=== PATIENT | male | born 1985 | race Caucasian/White ===

== ENCOUNTER 2016-08-07 18:04 | Inpatient (IN) | payer OTHER ==
[2016-08-07 18:37] LABS: Urine Bacteria Absent (Absent); Urine Bilirubin Negative (Negative); Urine Glucose Negative (Negative); Urine Nitrite Negative (Negative)
[2016-08-07 19:03] LABS: Benzodiazepine Urine Screen None Detected (None Detect)
[2016-08-07 19:11] LABS: Hematocrit 47 % (42-52); Hemoglobin 15.7 g/dl (14.0-18.0); Mean Corpuscular HGB Conc 33 g/dl (31-36); Mean Corpuscular Hemoglobin 31 pg (27-31); Mean Corpuscular Volume 92 fL (80-94); Mean Platelet Volume 9 um3 (7.4-10.4); Red Blood Count 5.11 10^6/ul (4.0-5.4); Red Cell Distribution Width 13 % (10.5-15); White Blood Count 8.1 10^3/ul (3.5-10.8)
[2016-08-07 19:26] LABS: ALT 136 U/L (7-52); AST 351 U/L (13-39); Alkaline Phosphatase 63 U/L (34-104); Anion Gap 4 mmol/L (2-11); BUN/Creatinine Ratio 20.6 (8-20); Blood Urea Nitrogen 22 mg/dL (6-24); CO2 Carbon Dioxide 34 mmol/L (22-32); Calcium 9.6 mg/dL (8.6-10.3); Chloride 100 mmol/L (101-111); EGFR African American 105.1 (>60); EGFR Non-African American 81.7 (>60); Globulin 2.8 g/dL (2-4); Glucose 64 mg/dL (70-100); Potassium 3.7 mmol/L (3.5-5.0); Sodium 138 mmol/L (133-145); Total Protein 6.8 g/dL (6.4-8.9)
[2016-08-07 19:50] LABS: Acetaminophen < 15 mcg/mL; Alcohol < 10 mg/dL (<10); Salicylate < 2.50 mg/dL (<30)
[2016-08-07 22:25] LABS: Albumin 3.6 g/dL (3.2-5.2); BUN/Creatinine Ratio 22.3 (8-20); Calcium 8.9 mg/dL (8.6-10.3); EGFR African American 109.8 (>60); EGFR Non-African American 85.4 (>60); Globulin 2.4 g/dL (2-4); Potassium 3.6 mmol/L (3.5-5.0); Total Bilirubin 0.3 mg/dL (0.2-1.0)
[2016-08-07 22:28] LABS: Acetaminophen < 15 mcg/mL; Salicylate < 2.50 mg/dL (<30)
[2016-08-08] MEDS ORDERED: hydrOXYzine HCL TAB* 50 MG PO PRN (12:22)
--- NOTE | 2016-08-08 13:00 | ED ---
IEber Adam, scribed for Talib Breen MD on 08/08/16 at 1243 . Progress - Progress Note Progress Note: 12:40 - Signed voluntary paperwork Condition: Stable - Consult/PCP Time Called: 10:10 Course/Dx - Diagnoses Provider Diagnoses: Depression, Overdose The documentation as recorded by the scribeEber Adam accurately reflects the service I personally performed and the decisions made by me, Talib Breen MD.
--- NOTE | 2016-08-08 19:24 | CONSULT ---
Subjective Date of Service: 08/08/16 Interval History: CAT call for possible stroke. On arrival patient was sitting on the couch calmly with nurse, stood up and was able to ambulate to the table with no issues. Patient states he is here for suicide attempt by medication overdose and since then has noticed some abnormal sensations on the left side of his body include some numbness, burning sensation and hip pain. Denies any swallowing difficulties, slurred speech, vision changes. Family History: Unchanged from Admission - None Social History: Unchanged from Admission - No tobacco abuse, occasional marijuana use and rare EtOH use. Past Medical History: Unchanged from Admission - Anxiety, depression, Crohn's disease Objective Active Medications: Bupropion HCl (Wellbutrin Sr Tab*) 150 mg PO DAILY [facility] Hydroxyzine HCl (Atarax Tab*) 50 mg PO Q6H PRN PRN Reason: AGITATION/ANXIETY/INSOMNIA Vinton Carbonate (Vinton Carbonate Tab*) 600 mg PO BEDTIME [facility] Propranolol HCl (Inderal Tab*) 10 mg PO DAILY [facility] Quetiapine Fumarate (Seroquel Xr Tab*) 150 mg PO BEDTIME [facility] BP 116/70 RR 16 HR 96 T99.2F O2 Sat 100% on RA Oxygen Devices in Use Now: None Appearance: Young, M, sitting in chair in NAD Eyes: No Scleral Icterus Ears/Nose/Mouth/Throat: Mucous Membranes Moist Neck: NL Appearance and Movements; NL JVP Respiratory: Symmetrical Chest Expansion and Respiratory Effort, Clear to Auscultation Cardiovascular: NL Sounds; No Murmurs; No JVD, RRR Abdominal: NL Sounds; No Tenderness; No Distention Lymphatic: No Cervical Adenopathy Extremities: No Edema Skin: No Rash or Ulcers Neurological: Alert and Oriented x 3, - - Reports some questionable decreased sensation on L side of face (V2-V3), remainder of firefighter type one intact, strength 5/5 throughout B/L UEs and LEs, questionable mild diminished sensation in LUE compared to RUE, no changes in LEs, no pronator drift, [id number] intact, no gait abnormalities noted Result Diagrams: 08/07/16 18:55 08/09/16 08:52 Assessment/Plan - Billing Intermittent L sided burning pain, possible decreased sensation and hip pain in a 31 yo M with hx of depression and anxiety who is hospitalized for attempted overdose after taking Nortriptyline, Seroquel, Propranolol. Symptoms he is reporting do not seem expected with medications he took. Patient seems unsure of any sensory abnormalities, neuro exam is not very convincing for stroke. Apparently patient "blacked out" after taking medications, could have possible fell and struck his head. Will check non-contrast head CT. If he has any change in symptoms can consider additional work-up (MRI, etc). Will check a CK. Recheck electrolytes (K, Mg, Phos, Ca) to ensure no new abnormalities. Will follow-up with patient tomorrow
--- NOTE | 2016-08-08 19:52 | RAD ---
INDICATION: Left-sided weakness COMPARISON: None TECHNIQUE: Noncontrast axial source images were acquired from the skull base to the vertex. FINDINGS: Ventricles/sulci: The ventricles and cisterns are normal in size and configuration for age. Brain parenchyma: There is no focal parenchymal finding, evidence of intracranial mass, or intracranial mass effect. Intracranial hemorrhage:None. Extra-axial spaces: There are no abnormal extra axial fluid collections or evidence of extra-axial mass. Calvarium: There is no calvarial fracture or other calvarial abnormality. Scalp: There is no evidence of scalp or extracalvarial soft tissue abnormality. Paranasal sinuses/mastoid: The paranasal sinuses and mastoid air cells are clear. Other: None. IMPRESSION: NEGATIVE EXAMINATION
[2016-08-08 20:52] LABS: Calcium 9.4 mg/dL (8.6-10.3); EGFR African American 113.6 (>60); EGFR Non-African American 88.3 (>60); Magnesium 2.2 mg/dL (1.9-2.7); Phosphorus 3.5 mg/dL (2.5-5.0); Potassium 4.1 mmol/L (3.5-5.0)
[2016-08-08] MEDS ORDERED: QUEtiapine XR TAB* 50 MG PO SCH (21:00)
[2016-08-08] MEDS ORDERED: Lithium Carbonate TAB* 300 MG PO SCH (21:00)
[2016-08-09 08:28] VITALS: BP 101/59
[2016-08-09] MEDS: Propranolol TAB* 10 MG PO SCH ×2 (08:28→09:35)
[2016-08-09] MEDS: buPROPion SR TAB.SR* 150 MG PO SCH ×2 (08:28→09:35)
[2016-08-09 09:15] LABS: BUN/Creatinine Ratio 16.8 (8-20); Calcium 9.5 mg/dL (8.6-10.3); EGFR African American 105.1 (>60); EGFR Non-African American 81.7 (>60); Potassium 4.1 mmol/L (3.5-5.0)
--- NOTE | 2016-08-23 20:49 | ED ---
Maryanne Lawler Anna, scribed for Marshal Sanz MD on 08/07/16 at 1832 . Psychiatric Complaint - HPI Summary HPI Summary: Patient is a 31 y/o male coming to [facility] presenting with depression that began a while ago. He tried to kill himself two days ago by ingesting 33 pills. He reports taking 18 pills of Nortriptyline, 5 pills of cyclobenzaprine, 10 pills of Xeroquel. He denies hearing voices, hallucinations, schizophrenia, bipolar disorder, or previous hospitalization for psychiatric reasons. He does want to hurt himself. He reports he has not tried to kill himself previously. He feels lifeless and hopeless. He has been sleeping a lot and has been drinking lots of water. - History Of Current Complaint Time Seen by Provider: 08/07/16 18:11 Hx Obtained From: Patient PMH/Surg Hx/FS Hx/Imm Hx Previously Healthy: Yes Psychiatric History: Denies: Hx Schizophrenia, Hx Bipolar Disorder, Other Psychiatric Issues/ Disorders Infectious Disease History: Denies: Traveled Outside the [place] in Last 30 Days - Family History Known Family History: Negative: Cardiac Disease, Diabetes - Social History Occupation: Student Alcohol Use: Occasionally Hx Substance Use: No Substance Use Type: Reports: None Hx Tobacco Use: No Smoking Status (MU): Never Smoked Tobacco Review of Systems Negative: Abdominal Pain, Vomiting, Nausea Negative: dysuria, hematuria Negative: Myalgia, Edema Negative: Rash Neurological: Other - Denies dizziness Psychological: Other - Suicide attempt Positive: Depressed All Other Systems Reviewed And Are Negative: Yes Physical Exam - Summary Physical Exam Summary: Constitutional: Well-developed, Well-nourished, Alert. (-) Distressed Skin: Warm, Dry HENT: Eyes: Conjunctiva normal Neck: Musculoskeletal ROM normal neck. (-) JVD, (-) Stridor, (-) Tracheal deviation Cardio: Rhythm regular, ~~rate normal, Heart sounds normal; Intact distal pulses ; The pedal pulses are 2+ and symmetric. Radial pulses are 2+ and symmetric. (- ) Murmur Pulmonary/Chest wall: Effort normal. (-) Respiratory distress, (-) Wheezes, (-) Rales Abd: Soft. (-) Tenderness, ~(-) Distension, (-) Guarding, (-) Rebound Musculoskeletal: (-) Edema Lymph: (-) Cervical adenopathy Neuro: Alert, Oriented x3, Strength normal, Cranial nerves II-XII are grossly intact. (-) Dysmetria, (-) Nystagmus, (-) Ataxia by finger to nose testing, (-) Sensory deficit. Psych: Flat affect Triage Information Reviewed: Yes Vital Signs On Initial Exam: Initial Vitals Temp Pulse Resp BP Pulse Ox 36.8 C 82 18 115/72 99 08/07/16 19:25 08/07/16 19:25 08/07/16 19:25 08/07/16 19:25 08/07/16 19:25 Vital Signs Reviewed: Yes Diagnostics - Vital Signs Vital Signs Temp Pulse Resp BP Pulse Ox 08/08/16 07:23 36.7 C 74 16 91/52 99 08/07/16 19:25 36.8 C 82 18 115/72 99 - Laboratory Lab Results: Lab Results 08/07/16 08/07/16 08/07/16 Range/Units 18:25 18:25 18:55 WBC 8.1 (3.5-10.8) 10^3/ul RBC 5.11 (4.0-5.4) 10^6/ul Hgb 15.7 (14.0-18.0) g/dl Hct 47 (42-52) % MCV 92 (80-94) fL MCH 31 (27-31) pg MCHC 33 (31-36) g/dl RDW 13 (10.5-15) % Plt Count 198 (150-450) 10^3/ul MPV 9 (7.4-10.4) um3 Neut % (Auto) 58.6 (38-83) % Lymph % (Auto) 30.4 (25-47) % [place] % (Auto) 9.3 H (1-9) % Eos % (Auto) 0.9 (0-6) % Baso % (Auto) 0.8 (0-2) % Absolute Neuts (auto) 4.8 (1.5-7.7) 10^3/ul Absolute Lymphs (auto) 2.5 (1.0-4.8) 10^3/ul Absolute Monos (auto) 0.8 (0-0.8) 10^3/ul Absolute Eos (auto) 0.1 (0-0.6) 10^3/ul Absolute Basos (auto) 0.1 (0-0.2) 10^3/ul Absolute Nucleated RBC 0 10^3/ul Nucleated RBC % 0.1 Sodium (133-145) mmol/L Potassium (3.5-5.0) mmol/L Chloride (101-111) mmol/L Carbon Dioxide (22-32) mmol/L Anion Gap (2-11) mmol/L BUN (6-24) mg/dL Creatinine (0.67-1.17) mg/dL Est GFR ( Amer) (>60) Est GFR (Non-Af Amer) (>60) BUN/Creatinine Ratio (8-20) Glucose (70-100) mg/dL Calcium (8.6-10.3) mg/dL Total Bilirubin (0.2-1.0) mg/dL AST (13-39) U/L ALT (7-52) U/L Alkaline Phosphatase (34-104) U/L Total Protein (6.4-8.9) g/dL Albumin (3.2-5.2) g/dL Globulin (2-4) g/dL Albumin/Globulin Ratio (1-3) TSH (0.34-5.60) mcIU/mL Urine Color Yellow Urine Appearance Clear Urine pH 5.0 (5-9) Ur Specific [place] 1.025 (1.010-1.030) Urine Protein Negative (Negative) Urine Ketones Negative (Negative) Urine Blood 2+ H (Negative) Urine Nitrate Negative (Negative) Urine Bilirubin Negative (Negative) Urine Urobilinogen Negative (Negative) Ur Leukocyte Esterase Negative (Negative) Urine WBC (Auto) 1+(6-10/hpf) H (Absent) Urine RBC (Auto) Trace(0-2/hpf) (Absent) Urine Bacteria Absent (Absent) Urine Glucose Negative (Negative) Salicylates (<30) mg/dL Urine Opiates Screen None detected (None Detect) Acetaminophen mcg/mL Ur Barbiturates Screen None detected (None Detect) Ur Phencyclidine Scrn None detected (None Detect) Ur Amphetamines Screen Presumptive positive H (None Detect) U Benzodiazepines Scrn None detected (None Detect) Urine Cocaine Screen None detected (None Detect) U Cannabinoids Screen Presumptive positive H (None Detect) Serum Alcohol (<10) mg/dL 08/07/16 08/07/16 08/07/16 Range/Units 18:55 21:45 21:45 WBC (3.5-10.8) 10^3/ul RBC (4.0-5.4) 10^6/ul Hgb (14.0-18.0) g/dl Hct (42-52) % MCV (80-94) fL MCH (27-31) pg MCHC (31-36) g/dl RDW (10.5-15) % Plt Count (150-450) 10^3/ul MPV (7.4-10.4) um3 Neut % (Auto) (38-83) % Lymph % (Auto) (25-47) % [place] % (Auto) (1-9) % Eos % (Auto) (0-6) % Baso % (Auto) (0-2) % Absolute Neuts (auto) (1.5-7.7) 10^3/ul Absolute Lymphs (auto) (1.0-4.8) 10^3/ul Absolute Monos (auto) (0-0.8) 10^3/ul Absolute Eos (auto) (0-0.6) 10^3/ul Absolute Basos (auto) (0-0.2) 10^3/ul Absolute Nucleated RBC 10^3/ul Nucleated RBC % Sodium 138 138 (133-145) mmol/L Potassium 3.7 3.6 (3.5-5.0) mmol/L Chloride 100 L 100 L (101-111) mmol/L Carbon Dioxide 34 H 32 (22-32) mmol/L Anion Gap 4 6 (2-11) mmol/L BUN 22 23 (6-24) mg/dL Creatinine 1.07 1.03 (0.67-1.17) mg/dL Est GFR ( Amer) 105.1 109.8 (>60) Est GFR (Non-Af Amer) 81.7 85.4 (>60) BUN/Creatinine Ratio 20.6 H 22.3 H (8-20) Glucose 64 L 105 H (70-100) mg/dL Calcium 9.6 8.9 (8.6-10.3) mg/dL Total Bilirubin 0.30 0.30 (0.2-1.0) mg/dL AST 351 H 295 H (13-39) U/L ALT 136 H 120 H (7-52) U/L Alkaline Phosphatase 63 59 (34-104) U/L Total Protein 6.8 6.0 L (6.4-8.9) g/dL Albumin 4.0 3.6 (3.2-5.2) g/dL Globulin 2.8 2.4 (2-4) g/dL Albumin/Globulin Ratio 1.4 1.5 (1-3) TSH 3.60 (0.34-5.60) mcIU/mL Urine Color Urine Appearance Urine pH (5-9) Ur Specific [place] (1.010-1.030) Urine Protein (Negative) Urine Ketones (Negative) Urine Blood (Negative) Urine Nitrate (Negative) Urine Bilirubin (Negative) Urine Urobilinogen (Negative) Ur Leukocyte Esterase (Negative) Urine WBC (Auto) (Absent) Urine RBC (Auto) (Absent) Urine Bacteria (Absent) Urine Glucose (Negative) Salicylates < 2.50 < 2.50 (<30) mg/dL Urine Opiates Screen (None Detect) Acetaminophen < 15 < 15 mcg/mL Ur Barbiturates Screen (None Detect) Ur Phencyclidine Scrn (None Detect) Ur Amphetamines Screen (None Detect) U Benzodiazepines Scrn (None Detect) Urine Cocaine Screen (None Detect) U Cannabinoids Screen (None Detect) Serum Alcohol < 10 (<10) mg/dL Result Diagrams: 08/07/16 18:55 08/09/16 08:52 Lab Statement: Any lab studies that have been ordered have been reviewed, and results considered in the medical decision making process. Course/Dx - Course Course Of Treatment: Pt is medically cleared for MHU Evaluation at 2233. Assessment/Plan: Patient is a 31 y/o male coming to [facility] presenting with depression that began a while ago. He tried to kill himself two days ago by ingesting 33 pills. He reports taking 18 pills of Nortriptyline, 5 pills of cyclobenzaprine, 10 pills of Xeroquel. He denies hearing voices, hallucinations , schizophrenia, bipolar disorder, or previous hospitalization for psychiatric reasons. He does want to hurt himself. He reports he has not tried to kill himself previously. He feels lifeless and hopeless. He has been sleeping a lot and has been drinking lots of water. Labs reveal presumptive positive values for amphetamines and cannabinoids. UA is positive for blood in urine. AST is elevated, at 351 U/L. ALT is elevated, at 136 U/L. Upon repeat labs, AST is 295 and ALT is 120. Pt is medically cleared for MHU Evaluation at 2233. - Differential Dx/Clinical Impression Provider Diagnosis: Depression, Overdose Discharge - Discharge Plan Condition: Stable Disposition: ADMITTED TO [facility] The documentation as recorded by the Maryanne greene Anna accurately reflects the service I personally performed and the decisions made by me, Marshal Sanz MD.
== END 2016-08-09 09:43 | disposition short-term general hospital (02) | DRG 885 ==
LOC: ED 18:04 → BSU 08-08 16:29
PROVIDERS: ADMIT Psychiatry & Neurology Psychiatry; ATTEND Psychiatry & Neurology Psychiatry
DX: F33.2 Major depressive disorder, recurrent severe without psychotic features (principal); K50.90 Crohn's disease, unspecified, without complications; F41.9 Anxiety disorder, unspecified; F90.9 Attention-deficit hyperactivity disorder, unspecified type; R20.0 Anesthesia of skin
CPT/HCPCS: 36415; 70450; 80048; 80053; 80307; 80320; 80329; 81003; 81015; 82550; 83735; 84100; 84443; 85025; 93005; A9270-GY; G0480

== ENCOUNTER 2016-08-09 09:43 | Inpatient (IN) | payer OTHER ==
[2016-08-09] MEDS: NS 0.9% 1000 ML* 1,000 ML IV SCH ×2 (12:20→20:15)
[2016-08-09 12:51] LABS: BUN/Creatinine Ratio 20.6 (8-20); Calcium 9.5 mg/dL (8.6-10.3); EGFR African American 117.7 (>60); EGFR Non-African American 91.5 (>60); Globulin 2.8 g/dL (2-4); Potassium 3.8 mmol/L (3.5-5.0); Total Bilirubin 0.4 mg/dL (0.2-1.0); Total Protein 6.8 g/dL (6.4-8.9)
--- NOTE | 2016-08-09 16:53 | PN ---
Progress Note - Progress Note Note: Wilmer was admitted to the [facility] yesterday after a near lethal suicide attempt. He was evaluated by the CAT last night to r/o TIA or stroke after complaining of non specific weakness, numbness. The evaluation was negative but he was incidentally found to have elevated CPK and he was transferred to the hospitalist service this AM before psychiatric evaluation. Plan to is see him in consultation in the hospitalist service and readmit him him to [facility] when medically cleared.
--- NOTE | 2016-08-09 19:23 | HP ---
HISTORY AND PHYSICAL: DATE OF ADMISSION: 08/09/16 PRIMARY CARE PHYSICIAN: Through [facility]. CHIEF COMPLAINT: Left-sided pain and numbness. HISTORY OF PRESENT ILLNESS: Mr. Valdez is a 31-year-old man with a past medical history of depressio n, anxiety, and Crohn disease who initially presented to the hospital with an intentional drug overd ose. 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 In an attempt to kill himself, he states that he took propranol ol, Seroquel followed by Benadryl, and then nortriptyline after researching the effects of the medic ations and feeling that that would be an appropriate cocktail to result in his . The patient s tates he laid on the ground for 30 to 40 minutes before becoming unconscious. This was on late on 08/05/16. The patient states that when he next awoke, it was daylight the next morning on Thursday. He states that he had left-sided hip and leg pain. He attempted to get up in a chair. He states that it took him hours. He then fell back asleep for the rest of the day and into the nig ht and thinks that he woke up either late Thursday or early . On , he called his c ounselor and told him about what he done done. The counselor told him he should go to the hospital, which the patient had stated he would do. Later in the day, the counselor did not receive callback from the patient, so he called the patient again and when there was no answer, he called the police who found the patient still in his apartment and was brought to the hospital for further evaluation . On his initial labs, they were relatively unremarkable aside from some increased AST and ALT. He was mildly hypoglycemic at 64. His UA showed 2+ blood and trace rbc's. His U-tox was positive for amphetamines and cannabinoids. The patient was admitted to the psych unit on August 08. Around 0645 hours, a catcall was made, which I personally responded to. This was made because the patient reported persistent left-sided pain and some numbness in the arm and leg. I examined the patient and could not find any significant neurological defects. As part of the panel of labs and imaging, I ordered a CK, which was elevated at 10,319. I suspect this is the cause of his symptoms and also his AST and ALT elevations may hav e been indicative of some underlying muscle injury as well. As the patient cannot IV fluids on the Behavioral Health Unit, he was transferred to the medical floor for further treatment. PAST MEDICAL HISTORY: 1. Depression. 2. Anxiety. 3. Crohn disease. PAST SURGICAL HISTORY: None. ALLERGIES: The patient has no known drug allergies. FAMILY HISTORY: He states that he has none. 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 Denies any tobacco ab use. Reports occasional use and occasional marijuana use. REVIEW OF SYSTEMS: A 12-point review of systems is negative except for that as noted in the HPI. PHYSICAL EXAMINATION GENERAL: The patient is a pleasant, young man, sitting up in bed, in no apparent distress . VITAL SIGNS: This morning temperature 98.1, heart rate of 74, respiratory rate of 16, O2 saturation 99% on room air, and blood pressure 91/52. HEENT: Moist mucous membranes. Anicteric sclerae. No cervical adenopathy. LUNGS: Clear to auscultation bilaterally. No wheezes, rales, or rhonchi. CARDIOVASCULAR: Regular rate and rhythm. S1, S2 present. No murmurs, rubs, or gallops. ABDOMEN: Soft, nontender, and nondistended. Bowel sounds positive. EXTREMITIES: No cyanosis, clubbing, or edema. The patient reports some tenderness along the latera l left calf as well as some questionable decreased sensation. NEUROLOGIC: The remainder of his neurological exam is within normal limits. DIAGNOSTIC STUDIES/LAB DATA: CK of 10,319, now improved to 6591. Sodium of 138, potassium 3.8, cr eatinine of 0.97, and glucose of 51, recheck of 73. AST of [address] ALT of [address]. CT of the head shows no acute disease. ASSESSMENT AND PLAN: Rhabdomyolysis secondary to prolonged immobilization due to intentional drug o verdose in a 31-year-old man with a past medical history of depression, anxiety, and Crohn disease. 1. Rhabdomyolysis: The patient is having no renal dysfunction. Rhabdomyolysis seemed to be improv ing on its own; however, I would prefer to give the patient IV fluids overnight to try to avoid any renal injury. Continue normal saline at 125 mL per hour. This is likely the cause of his left-side d symptoms. 2. Depression and anxiety: Continue bupropion, lithium, propranolol, and Seroquel that were all be ing given in the psych unit. 3. Crohn disease: We will try to determine the patient's home dose of Asacol and restart that. 4. DVT prophylaxis: The patient is low risk, ambulate. 5. Code status: The patient is a full code. 6. The patient will likely need just 1 to 2 nights of IV fluids and should be ready to transfer [facility] to the psych unit when this is complete. TIME SPENT: Total time spent on this patient, 55 minutes. [id number]/[facility] #: [id number]
[2016-08-09] MEDS: Lithium Carbonate TAB* 300 MG PO SCH (22:46)
[2016-08-09] MEDS: QUEtiapine XR TAB* 50 MG PO SCH (23:56)
[2016-08-10] MEDS: NS 0.9% 1000 ML* 1,000 ML IV SCH ×3 (03:47→21:10)
[2016-08-10 07:13] LABS: Calcium 8.8 mg/dL (8.6-10.3); EGFR African American 158.3 (>60); EGFR Non-African American 123.1 (>60)
[2016-08-10] MEDS ORDERED: Propranolol TAB* 10 MG PO SCH (09:00)
[2016-08-10] MEDS ORDERED: BuPROPion XL* 150 MG TAB.XL PO SCH (09:00)
[2016-08-10] MEDS ORDERED: Influenza VAC *QUAD* 2016-17* 0.5 ML SYRINGE IM ONE (09:00)
--- NOTE | 2016-08-10 09:29 | PN ---
Subjective Date of Service: 08/10/16 Interval History: Patient seen this morning. Says he feels well rested. Thinks L sided symptoms are improving although still notes more localized areas on the L lateral calf and L cheekbone. Has been ambulating around the unit. Urine is clear. No suicidal ideations. Family History: Unchanged from Admission Social History: Unchanged from Admission Past Medical History: Unchanged from Admission Objective Active Medications: Bupropion HCl (Wellbutrin Xl *) 300 mg PO DAILY [facility] Sodium Chloride (Ns 0.9% 1000 Ml*) 1,000 mls @ 125 mls/hr IV PER RATE [facility] Last Admin: 08/10/16 03:47 Dose: 125 mls/hr Cidra Carbonate (Cidra Carbonate Tab*) 600 mg PO BEDTIME [facility] Last Admin: 08/09/16 22:46 Dose: 600 mg Propranolol HCl (Inderal Tab*) 10 mg PO DAILY [facility] Quetiapine Fumarate (Seroquel Xr Tab*) 150 mg PO BEDTIME [facility] Last Admin: 08/09/16 23:56 Dose: 150 mg Vital Signs 08/09/16 08/09/16 08/09/16 10:34 13:01 14:13 Temperature 98.3 F 98.4 F Pulse Rate 103 105 Respiratory 14 18 17 Rate Blood Pressure 108/70 118/72 (mmHg) O2 Sat by Pulse 100 100 Oximetry 08/09/16 08/09/16 08/09/16 14:15 15:09 19:27 Temperature 98.4 F 97.9 F 98.9 F Pulse Rate 105 100 105 Respiratory 17 16 16 Rate Blood Pressure 118/72 113/74 111/91 (mmHg) O2 Sat by Pulse 100 100 100 Oximetry 08/10/16 07:54 Temperature 97.4 F Pulse Rate 83 Respiratory 16 Rate Blood Pressure 104/56 (mmHg) O2 Sat by Pulse 100 Oximetry Oxygen Devices in Use Now: None Appearance: Young, M, laying in bed in NAD Eyes: No Scleral Icterus Ears/Nose/Mouth/Throat: Mucous Membranes Moist Neck: NL Appearance and Movements; NL JVP Respiratory: Symmetrical Chest Expansion and Respiratory Effort, Clear to Auscultation Cardiovascular: NL Sounds; No Murmurs; No JVD, RRR Abdominal: NL Sounds; No Tenderness; No Distention Lymphatic: No Cervical Adenopathy Extremities: No Edema Skin: - - Some slight drying ok skin over L cheeckbone Neurological: Alert and Oriented x 3, - - Reports slightly diminished sensation over L cheekbone and L lateral calf Result Diagrams: 08/10/16 06:21 Assess/Plan/Problems-Billing Assessment: Rhabdomyolysis 2/2 prolonged immobilization after overdose/suicide attempt ( Propranolol, Seroquel, Benadryl, Nortriptyline) in a 31 yo M with hx of anxiety , depression, crohns - Patient Problems (1) Rhabdomyolysis Current Visit: Yes Comment: CKs improving. Continue IVF another 24 hours. No signs of renal dysfunction. (2) Depression Current Visit: Yes Comment: Continue bupropion, lithium, propranolol and seroquel as per psych. Spoke with Dr. Fisher who says he will continue to follow the patient on the floor (3) Crohn's disease Current Visit: Yes Comment: Unable to determine home dose of mesalamine. No signs of exacerbation at this time. Will continue to try to find dose. (4) DVT prophylaxis Current Visit: Yes Comment: Ambulate
[2016-08-10] MEDS: BuPROPion XL* 300 MG TAB.XL PO SCH (09:36)
[2016-08-10] MEDS: Venlafaxine EXT RELEASE CAP* 75 MG PO SCH (16:17)
[2016-08-10] MEDS: Lithium Carbonate TAB* 300 MG PO SCH (21:00)
[2016-08-10] MEDS: QUEtiapine XR TAB* 50 MG PO SCH (21:00)
--- NOTE | 2016-08-10 21:26 | CONS ---
PSYCHIATRIC CONSULTATION/HISTORY AND PHYSICAL: DATE OF CONSULT/ADMISSION: 08/10/16 ID: Mr. 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 CHIEF COMPLAINT He was medically treated in the ED and he was admitted initially to the psychiatric service on 08/08/16 for treatment. In the evening of the same day, he complained of weakness on one side, tingling sensation and numbness on half of his face. He was assessed by the clinical assessment team and CVA was conclusively ruled out, but he was incidentally found to have high CPK levels (over 10,000) and he was transferred to the hospitalist service on for treatment. I saw him today, 08/10/16, to reassess the need for inpatient psychiatric admission after he is medically cleared. HISTORY OF PRESENT ILLNESS: The patient relates that he has long-standing history of depression, anxiety, and attention/deficit disorder and he receives outpatient care at [facility] at [place]. He relates that his current difficulties started on August 05, when he was called into a meeting with a professor, was accused of plagiarism and he was also informed that he was doing poorly as a student and was going to be placed on academic probation. He said he felt quite distressed and upset about the meeting. He had another meeting with another amphibian crewmember which went better. Then, he went to his apartment where he took the time to gather family pictures and he also wrote on his body the reason why he was about to take his life. He then swallowed 4 pills of beta blockers (a mix of propranolol and atenolol), 12 to 15 pills of nortriptyline 100 mg, 3 tablets of Benadryl 25 mg and 7 to 12 tablets of Seroquel 150 mg XR. He explains that had done some research and he knew that the overdose on nortriptyline would probably be lethal and the rationale for taking the other medications was to be sedated and to not to experience any pain while ending his life. He fell asleep within half an hour of taking the pills, woke up on the floor the next morning, felt weak, and dragged himself to bed, and again slept for another 12 hours. On , he called [facility] and asked to speak to his therapist, Carlos Greenberg, who advised him to either drive himself to the emergency room or to call 911 and be transported by ambulance. He again fell asleep and he missed an emergency appointment with [facility]. The therapist called to check in on him and he did not answer, as a result, the police responded to the house and called an ambulance to have him transported here. The patient described additional stressors of feeling lonely. He reports considering taking a medical leave. REVIEW OF MEDICAL SYMPTOMS: The patient described since age 12, 13, recurrent depressive episodes with low mood, decreased interest, low level of energy, lack of motivation, impaired attention and concentration, passive wish, self-cutting behavior to relieve stress, isolating from others, feelings of guilt, hopelessness, helplessness, and worthlessness. He asserted the he is persistently depressed with brief period lasting a few days when he feels better. He denies manic or psychotic symptoms. He endorses anxiety in social settings or in situations of performance. He also described recurrent panic attacks, excessive worrying, feeling tense and irritable. He denies obsessive thoughts or compulsive rituals. He denies history of trauma, abuse, or PTSD symptoms. The patient denies previous diagnosis of learning disorder. He endorsed difficulty focusing his attention, getting work done, organizing, and prioritizing tasks, and he was evaluated by a psychologist, who felt that he had questionable ADD. He denies symptoms of eating disorder. PAST PSYCHIATRIC HISTORY: This is his first inpatient psychiatric admission. He started outpatient care while he was attending the school in [place] 2 arita ago because of depression. His current outpatient care currently is at [facility] with Dr. Chema Lanier and with therapist, Carlos Greenberg. He is prescribed Effexor XR 150 mg daily, Adderall 30 mg in the morning, Seroquel XR 150 mg at bedtime, Propranolol 10 mg as needed for performance anxiety. He was being weaned off Wellbutrin XL 300 mg daily and lithium current dose is 600 mg p.o. at bedtime. SUICIDE/HOMICIDE HISTORY: The patient relates that about 2 years ago, he took an overdose of lithium that he knew was not a lethal dose. He described it as more of a suicidal gesture that he did not disclose to anyone and did not seek care for it. He does have a history of self-cutting behavior to relieve stress. He took the pills last Thursday evening with the intent to end his life. He denies any history of violence. MEDICATION HISTORY: The patient has had past trials of desipramine, nortriptyline, Viibrid, alprazolam, clonazepam, and he is also being weaned off bupropion XL and lithium. FAMILY HISTORY: The patient reports family history of depression and anxiety in his biological mother. SUBSTANCE ABUSE HISTORY: The patient reports drinking alcohol socially. He estimates drinking from 0 to 2 times a week, occasionally to the point of intoxication. He smokes marijuana occasionally. He denies smoking tobacco. He denies the use of other illicit drugs. PERSONAL AND SOCIAL HISTORY: He is the younger of two males from parents who when he was about 12 years old. He has a brother who is 1 year older and who still lives in [place]. Following the separation, he spent time alternatively with both parents. He did well in high school and as an undergraduate student in [place] where he majored in music. 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 He started at [employer] last fall and this is his second semester of a 5-year program. He identified as being homosexual. He is not currently dating, but he has been sexually active with other males. He declines HIV testing, citing lack of need. He reported feeling rather socially isolated on campus. REVIEW OF MEDICAL SYMPTOMS: Remarkable for the fact that he is status post overdose of prescribed medications and for Crohn's disease for which he takes mesalamine and hydrocortisone and he is being treated for Rhabdomyolysis. REVIEW OF MEDICAL SYMPTOMS: High CPK that is trending down. PHYSICAL EXAMINATION: Please refer to Dr. Ortiz's history and physical on this patient. MENTAL STATUS EXAMINATION: Finds an averagely built, 31-year-old white male wearing glasses, dressed in hospital gown who looks his stated age. He is well groomed. He makes good eye contact and he is cooperative. He exhibits normal psychomotor activity. No abnormal movements are observed. Speech is spontaneous, normal rate, rhythm, and volume. His affect is constricted. Mood is depressed. He denies active suicidal ideation or urges to self-mutilate and he contracts for safety. His insight and judgment are fair. Impulse control is good in this setting. He is alert. He is oriented to time, place, and person. Attention, memory, and concentration are all fair. Fund of knowledge is adequate. Intelligence is estimated to be in high average range. SUMMARY: First inpatient psychiatric admission for this 31-year-old male with a history of self-injury, suicide attempt, substance abuse, outpatient care, current trial of venlafaxine, quetiapine, Adderall, and propranolol, who was brought in by ambulance from his apartment after an intentional overdose on his prescribed medications with intent to end his life. Context was set back at school where he was accused of plagiarism and was placed on academic probation. Medical history is remarkable for rhabdomyolysis and for Crohn's disease. He described academic stress, feeling socially isolated, and anxiety about disclosing to his parents what has happened as his stressors. DIAGNOSTIC IMPRESSIONS: 1. Major depressive disorder, recurrent, moderate to severe, without psychotic features. 2. Complex anxiety disorder (with features of social, panic, and generalized anxiety). 3. Attention deficit/disorder, by history. 4. Cluster B traits. TREATMENT PLAN: The patient when assessed today still continued to report feeling depressed and he did not contract for safety if discharged from this hospital. The plan is to readmit him to the [facility] when he is medically cleared for observation, evaluation, and treatment. The patient has agreed to start working on psychological testing while in the hospitalist service. I have discussed this plan with hospitalist, Dr. Jose Ortiz, and helped reconciled the patient's previous outpatient regimen. 60 min. of clinical time spent of this evaluation. [id number]/[facility] #: [id number] RADHA
[2016-08-11] MEDS: NS 0.9% 1000 ML* 1,000 ML IV SCH (05:09)
[2016-08-11 07:47] LABS: BUN/Creatinine Ratio 16.5 (8-20); Calcium 8.6 mg/dL (8.6-10.3); EGFR African American 137.1 (>60); EGFR Non-African American 106.6 (>60); Potassium 3.9 mmol/L (3.5-5.0)
[2016-08-11] MEDS: BuPROPion XL* 300 MG TAB.XL PO SCH (09:23)
[2016-08-11] MEDS: Venlafaxine EXT RELEASE CAP* 75 MG PO SCH (09:23)
--- NOTE | 2016-08-11 11:07 | PN ---
Subjective Date of Service: 08/11/16 Interval History: Patient seen this morning. Still reporting some numbness/pain in scattered areas on the left side of his body. Urinating with no issues. No blood in urine. Recalls home dose of mesalamine, will reorder. Family History: Unchanged from Admission Social History: Unchanged from Admission Past Medical History: Unchanged from Admission Objective Active Medications: Bupropion HCl (Bupropion Xl*) 300 mg PO DAILY [facility] Sodium Chloride (Ns 0.9% 1000 Ml*) 1,000 mls @ 125 mls/hr IV PER RATE [facility] [place] Carbonate ([place] Carbonate Tab*) 600 mg PO BEDTIME [facility] Mesalamine (Mesalamine Dr Cap*) 2,400 mg PO BID [facility] Quetiapine Fumarate (Seroquel Xr Tab*) 150 mg PO BEDTIME [facility] Venlafaxine HCl (Effexor Xr Cap*) 150 mg PO DAILY [facility] Vital Signs 08/10/16 08/10/16 08/10/16 17:00 20:54 23:34 Temperature 99.6 F 98.1 F Pulse Rate 96 99 Respiratory 14 18 16 Rate Blood Pressure 111/70 98/60 (mmHg) O2 Sat by Pulse 100 97 Oximetry 08/10/16 23:49 Temperature Pulse Rate Respiratory Rate Blood Pressure 104/60 (mmHg) O2 Sat by Pulse Oximetry Oxygen Devices in Use Now: None Appearance: Young, M, laying in bed in NAD Eyes: No Scleral Icterus Ears/Nose/Mouth/Throat: Mucous Membranes Moist Neck: NL Appearance and Movements; NL JVP Respiratory: Symmetrical Chest Expansion and Respiratory Effort, Clear to Auscultation Cardiovascular: NL Sounds; No Murmurs; No JVD, RRR Abdominal: NL Sounds; No Tenderness; No Distention Lymphatic: No Cervical Adenopathy Extremities: No Edema Skin: No Rash or Ulcers Neurological: Alert and Oriented x 3 Result Diagrams: 08/11/16 06:52 Assess/Plan/Problems-Billing Assessment: Rhabdomyolysis 2/2 prolonged immobilization after overdose/suicide attempt ( Propranolol, Seroquel, Benadryl, Nortriptyline) in a 31 yo M with hx of anxiety , depression, crohns - Patient Problems (1) Rhabdomyolysis Current Visit: Yes Comment: CKs improving, will stop IVF, encouraged oral intake. No need to trend further. (2) Depression Current Visit: Yes Comment: Continue bupropion, lithium, effexor and seroquel as per psych. Awaiting bed opening on [facility]. MMPI completed by patient and placed in the chart. (3) Crohn's disease Current Visit: Yes Comment: Will order mesalamine 2400 BID which patient reports he takes at home. (4) DVT prophylaxis Current Visit: Yes Comment: Ambulate
[2016-08-11] MEDS: Lithium Carbonate TAB* 300 MG PO SCH (20:59)
[2016-08-11] MEDS: QUEtiapine XR TAB* 50 MG PO SCH (21:00)
[2016-08-12] MEDS: Venlafaxine EXT RELEASE CAP* 75 MG PO SCH (09:45)
[2016-08-12] MEDS: BuPROPion XL* 300 MG TAB.XL PO SCH (09:45)
--- NOTE | 2016-08-12 10:33 | PN ---
Subjective Date of Service: 08/12/16 Interval History: Patient seen this morning. No new complaints. Says he is getting restless. Urinating with no issues. Family History: Unchanged from Admission Social History: Unchanged from Admission Past Medical History: Unchanged from Admission Objective Active Medications: Bupropion HCl (Bupropion Xl*) 300 mg PO DAILY [facility] Last Admin: 08/12/16 09:45 Dose: 300 mg [place] Carbonate ([place] Carbonate Tab*) 600 mg PO BEDTIME [facility] Last Admin: 08/11/16 20:59 Dose: 600 mg Mesalamine (Mesalamine Dr Cap*) 2,400 mg PO BID [facility] Last Admin: 08/12/16 09:45 Dose: 2,400 mg Quetiapine Fumarate (Seroquel Xr Tab*) 150 mg PO BEDTIME [facility] Last Admin: 08/11/16 21:00 Dose: 150 mg Venlafaxine HCl (Effexor Xr Cap*) 150 mg PO DAILY [facility] Last Admin: 08/12/16 09:45 Dose: 150 mg Vital Signs 08/11/16 08/11/16 08/11/16 11:49 15:24 20:00 Temperature 98.0 F 98.1 F Pulse Rate 85 93 Respiratory 16 14 16 Rate Blood Pressure 113/60 116/77 (mmHg) O2 Sat by Pulse 100 100 Oximetry Oxygen Devices in Use Now: None Appearance: Young, M, laying in bed in NAD Eyes: No Scleral Icterus Ears/Nose/Mouth/Throat: Mucous Membranes Moist Neck: NL Appearance and Movements; NL JVP Respiratory: Symmetrical Chest Expansion and Respiratory Effort, Clear to Auscultation Cardiovascular: NL Sounds; No Murmurs; No JVD, RRR Abdominal: NL Sounds; No Tenderness; No Distention Extremities: No Edema Neurological: Alert and Oriented x 3 Result Diagrams: 08/11/16 06:52 Assess/Plan/Problems-Billing Assessment: Rhabdomyolysis 2/2 prolonged immobilization after overdose/suicide attempt ( Propranolol, Seroquel, Benadryl, Nortriptyline) in a 31 yo M with hx of anxiety , depression, crohns - Patient Problems (1) Rhabdomyolysis Current Visit: Yes Comment: Stopped trending, off IVF. (2) Depression Current Visit: Yes Comment: Continue bupropion, lithium, effexor and seroquel as per psych. Awaiting bed opening on [facility]. MMPI completed by patient and placed in the chart. (3) Crohn's disease Current Visit: Yes Comment: Mesalamine 2400 BID which patient reports he takes at home. (4) DVT prophylaxis Current Visit: Yes Comment: Ambulate Status and Disposition: Likely transfer back to Psych unit later today
--- NOTE | 2016-08-12 17:03 | CONSULT ---
Identification - Patient Identification Reason for Psychiatric Consultation: Suicidal Ideation -: Patient is a 31 year old, M admitted on 08/10/16. - MHU Identification Employment Status: Student History - Objective HPI: Patient seen for psychiatric consultation follow up. My understanding is that he is medically cleared and now awaiting transfer back to the [facility], where he was briefly hospitalized over the weekend before developing somatic symptoms requiring transfer to medicine. Currently he presents as depressed and constricted, although he denies SI. The patient appears to be minimizing the circumstances leading to his suicide attempt, which was significant enough to warrant inpatient psychiatric stabilization. In the meantime he is tolerating his psychiatric medications well and is on a 1:1 for his safety. Lab Results: Laboratory Tests 08/09/16 08/09/16 08/09/16 12:12 13:31 18:20 Sodium 138 Potassium 3.8 Chloride 102 Carbon Dioxide 31 Anion Gap 5 BUN 20 Creatinine 0.97 Est GFR ( Amer) 117.7 Est GFR (Non-Af Amer) 91.5 BUN/Creatinine Ratio 20.6 H Glucose 51 L POC Glucose (mg/dL) 73 L 92 Calcium 9.5 Total Bilirubin 0.40 AST 246 H ALT 123 H Alkaline Phosphatase 68 Total Creatine Kinase Total Protein 6.8 Albumin 4.0 Globulin 2.8 Albumin/Globulin Ratio 1.4 08/10/16 08/10/16 08/10/16 06:21 06:48 06:51 Sodium 136 Potassium 4.0 Chloride 107 Carbon Dioxide 24 Anion Gap 5 BUN 15 Creatinine 0.75 Est GFR ( Amer) 158.3 Est GFR (Non-Af Amer) 123.1 BUN/Creatinine Ratio 20.0 Glucose 91 POC Glucose (mg/dL) 64 L 75 Calcium 8.8 Total Bilirubin AST ALT Alkaline Phosphatase Total Creatine Kinase 3291 H Total Protein Albumin Globulin Albumin/Globulin Ratio 08/10/16 08/11/16 08/11/16 18:13 06:52 07:18 Sodium 136 Potassium 3.9 Chloride 105 Carbon Dioxide 26 Anion Gap 5 BUN 14 Creatinine 0.85 Est GFR ( Amer) 137.1 Est GFR (Non-Af Amer) 106.6 BUN/Creatinine Ratio 16.5 Glucose 89 POC Glucose (mg/dL) 93 93 Calcium 8.6 Total Bilirubin AST ALT Alkaline Phosphatase Total Creatine Kinase 1425 H Total Protein Albumin Globulin Albumin/Globulin Ratio 08/11/16 08/12/16 18:55 08:05 Sodium Potassium Chloride Carbon Dioxide Anion Gap BUN Creatinine Est GFR ( Amer) Est GFR (Non-Af Amer) BUN/Creatinine Ratio Glucose POC Glucose (mg/dL) 97 82 Calcium Total Bilirubin AST ALT Alkaline Phosphatase Total Creatine Kinase Total Protein Albumin Globulin Albumin/Globulin Ratio Exam Appearance: Well Developed/Nourished Hygiene: Normal Grooming: Fairly Well Kept Psychomotor Activities: Normal Exhibits Abnormal Movement: No Attitude and Relatedness: Cooperative Eye Contact: Fair - Speech Quality: Unpressured Latencies: Normal Quantity: Terse Patient's Decription of Mood: "Sad" Observed Affect: Constricted Affect Consistent with: Dysphoria Patient's Thought Process: Coherent Thought Content: No Passive Wish, No Suicidal Planning, No Homicidal Ideation, No Paranoid Ideation Experiencing Hallucinations: No, Sensorium is Clear Type of Hallucinations: Visual: No, Auditory: No, Command: No Level of Consciousness: Alert Orientation: Yes Intact, Yes Orientated to Time, Yes Orientated to Place, Yes Orientated to Person Impulse Control: Poor Insight and Judgement: Impaired Impression - Impression Clinical Impression: 31 y.o. 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 Inpatient DSM-IV Dx: MDD, recurrent, severe without psychotic features Merits Inpatient Hospitalization: Yes Problem List - MHU Problems Type of Problem: Mood Status of Problem: Active Plan - Treatment Plan Treatment Plan: Patient requires inpatient psychiatric care and will likely be transferred to the [facility] tomorrow (08/13) when a male bed becomes available. Continue psych meds and 1:1 observations until then. Psychiatry will follow closely. Continued Medication Management: Continue Outpt Medication Medications: Current Medications Bupropion HCl (Bupropion Xl*) 300 mg PO DAILY [facility] Last Admin: 08/12/16 09:45 Dose: 300 mg [place] Carbonate ([place] Carbonate Tab*) 600 mg PO BEDTIME [facility] Last Admin: 08/11/16 20:59 Dose: 600 mg Mesalamine (Mesalamine Dr Cap*) 2,400 mg PO BID [facility] Last Admin: 08/12/16 09:45 Dose: 2,400 mg Quetiapine Fumarate (Seroquel Xr Tab*) 150 mg PO BEDTIME [facility] Last Admin: 08/11/16 21:00 Dose: 150 mg Venlafaxine HCl (Effexor Xr Cap*) 150 mg PO DAILY [facility] Last Admin: 08/12/16 09:45 Dose: 150 mg - Discharge Plan Discharge Plan: Inpatient Hospitalization
[2016-08-12] MEDS: QUEtiapine XR TAB* 50 MG PO SCH (20:13)
[2016-08-12] MEDS: Lithium Carbonate TAB* 300 MG PO SCH (20:13)
[2016-08-13] MEDS: Venlafaxine EXT RELEASE CAP* 75 MG PO SCH (08:39)
[2016-08-13] MEDS: BuPROPion XL* 300 MG TAB.XL PO SCH (08:39)
[2016-08-13] MEDS ORDERED: Amphetamine MIXED SALT TAB* 10 MG TAB PO ONE (13:02)
--- NOTE | 2016-08-13 13:09 | PN ---
Subjective Date of Service: 08/13/16 Interval History: Patient seen this afternoon. Noticed some more blood in his stool, says this usually responds to hydrocortisone enemas at home. Noticing some pimples on his skin that he is concerned about. Frustrated he is still on the medical floor and has not been able to get his work done. Family History: Unchanged from Admission Social History: Unchanged from Admission Past Medical History: Unchanged from Admission Objective Active Medications: Amphetamine/Dextroamphetamine (Adderall Tab*) 15 mg PO ONCE ONE Bupropion HCl (Bupropion Xl*) 300 mg PO DAILY [facility] Hydrocortisone (Cortenema*) 100 mg [place] DAILY [facility] [place] Carbonate ([place] Carbonate Tab*) 600 mg PO BEDTIME [facility] Mesalamine (Mesalamine Dr Cap*) 2,400 mg PO BID [facility] Quetiapine Fumarate (Seroquel Xr Tab*) 150 mg PO BEDTIME [facility] Venlafaxine HCl (Effexor Xr Cap*) 150 mg PO DAILY [facility] Vital Signs 08/12/16 08/12/16 08/12/16 16:34 19:22 23:46 Temperature 98.0 F 97.7 F Pulse Rate 99 71 Respiratory 16 16 16 Rate Blood Pressure 124/83 97/65 (mmHg) O2 Sat by Pulse 100 97 Oximetry Oxygen Devices in Use Now: None Appearance: Young, M, sitting in chair in NAD Eyes: No Scleral Icterus Ears/Nose/Mouth/Throat: Mucous Membranes Moist Neck: NL Appearance and Movements; NL JVP Respiratory: Symmetrical Chest Expansion and Respiratory Effort, Clear to Auscultation Cardiovascular: NL Sounds; No Murmurs; No JVD, RRR Abdominal: NL Sounds; No Tenderness; No Distention Lymphatic: No Cervical Adenopathy Extremities: No Edema Skin: - - Some scattered pimples Neurological: Alert and Oriented x 3 Result Diagrams: 08/11/16 06:52 Assess/Plan/Problems-Billing Assessment: Rhabdomyolysis 2/2 prolonged immobilization after overdose/suicide attempt ( Propranolol, Seroquel, Benadryl, Nortriptyline) in a 31 yo M with hx of anxiety , depression, crohns - Patient Problems (1) Rhabdomyolysis Current Visit: Yes Comment: Stopped trending, off IVF. (2) Depression Current Visit: Yes Comment: Continue bupropion, lithium, effexor and seroquel as per psych. Awaiting bed opening on [facility]. MMPI completed by patient and placed in the chart. Will give 1 dose of Adderall that patient takes at home, he can discuss further with psychiatry. (3) Crohn's disease Current Visit: Yes Comment: Mesalamine 2400 BID which patient reports he takes at home. Will start hydrocortisone enema as well. (4) DVT prophylaxis Current Visit: Yes Comment: Ambulate Status and Disposition: Awaiting bed in Psych unit
[2016-08-13] MEDS ORDERED: HYDROCORTISONE ENEMA PR SCH (13:30)
[2016-08-13 15:22] VITALS: BP 130/74
--- NOTE | 2016-08-14 00:46 | DS ---
DISCHARGE SUMMARY: DATE OF ADMISSION: 08/10/16 DATE OF DISCHARGE: 08/13/16 PRIMARY CARE PHYSICIAN: Through [facility]. PRINCIPAL DISCHARGE DIAGNOSIS: Rhabdomyolysis secondary to prolonged immobilization due to intentional drug overdose. SECONDARY DIAGNOSES: 1. Depression. 2. Anxiety. 3. Crohn's disease. DISCHARGE MEDICATION REGIMEN: 1. Mesalamine 2400 mg by mouth 2 times daily. 2. [place] 300 mg by mouth 2 times daily. 3. Bupropion 300 mg by mouth daily. 4. Venlafaxine 300 mg by mouth daily. 5. Hydrocortisone enema 100 mg per rectum daily. HISTORY OF PRESENT ILLNESS AND HOSPITAL SUMMARY: Please see my history and physical from 08/09/16 for full details. Briefly, Mr. Valdez is a 31-year-old male with past medical history of depression, anxiety, Crohn's disease, who initially presented to the hospital with intentional drug overdose. The patient was on the psych floor and a CAT team was called as the patient was complaining of left-sided numbness and pain. The patient was found to have elevated CK at 10,300. He was transferred to the medical floor and started on IV fluids with improvement in his CK's over the subsequent days. He never had any renal dysfunction. The patient did report some worsening of his Crohn's disease while in the hospital. He had a few days without his home mesalamine, which is reordered here. The patient usually has a small amount of blood in the stool; however, noticed a bit more than usual and was started on hydrocortisone enemas, which he was also on at home for a time until his insurance no longer covered it. The patient is medically stable and he will be discharged back to the Psych unit for further treatment regarding his suicide attempt. TIME SPENT: Total time spent on this discharge, 45 minutes. This is just a summary of the hospitalization, please see full medical record for further details. [id number] #: [id number] MTDD
== END 2016-08-13 15:15 | DRG 558 ==
LOC: INTOOBSV 09:43 → MEDTELE 09:43 → MED 14:12 → OBSVTOIN 08-10 14:39
PROVIDERS: ADMIT Hospitalist; ATTEND Hospitalist
DX: M62.82 Rhabdomyolysis (principal); F33.2 Major depressive disorder, recurrent severe without psychotic features; K50.90 Crohn's disease, unspecified, without complications; K92.1 Melena; F41.9 Anxiety disorder, unspecified; F12.90 Cannabis use, unspecified, uncomplicated; T44.7X2A Poisoning by beta-adrenoreceptor antagonists, intentional self-harm, initial encounter; T43.592A Poisoning by other antipsychotics and neuroleptics, intentional self-harm, initial encounter; T45.0X2A Poisoning by antiallergic and antiemetic drugs, intentional self-harm, initial encounter; F90.9 Attention-deficit hyperactivity disorder, unspecified type; T43.012A Poisoning by tricyclic antidepressants, intentional self-harm, initial encounter; Z91.5 Personal history of self-harm; Z81.8 Family history of other mental and behavioral disorders; Z72.89 Other problems related to lifestyle; Z79.52 Long term (current) use of systemic steroids
CPT/HCPCS: 36415; 80048; 80053; 82550; 90686; A9270-GY; G0378

== ENCOUNTER 2016-08-13 15:15 | Inpatient (IN) | payer OTHER ==
[2016-08-13] MEDS ORDERED: Acetaminophen TAB* 325 MG PO PRN (16:19)
[2016-08-13] MEDS ORDERED: Al Hydrox/Mg Hydrox/Simet LIQ* 30 ML UDC PO PRN (16:19)
[2016-08-13] MEDS ORDERED: Lithium Carbonate TAB* 300 MG PO SCH (21:00)
[2016-08-13] MEDS ORDERED: QUEtiapine XR TAB* 50 MG PO SCH (21:00)
[2016-08-13] MEDS ORDERED: HYDROCORTISONE ENEMA PR SCH (23:00)
[2016-08-14] MEDS ORDERED: BuPROPion XL* 300 MG TAB.XL PO SCH (09:00)
[2016-08-14] MEDS ORDERED: Venlafaxine EXT RELEASE CAP* 75 MG PO SCH (09:00)
[2016-08-14] MEDS ORDERED: traZODone TAB* 50 MG TAB PO PRN (15:14)
--- NOTE | 2016-08-14 16:38 | HP ---
DATE OF ADMISSION: 08/13/2016. JUSTIFICATION FOR ADMISSION: The patient is in need of 24 hour supervision and care secondary to a suicidal overdose which was severe and intentional. 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 The patient had briefly been hospitalized on our unit on August 09; however, almost immediately upon admission, he started complaining of tingling and numbness in his face. A stroke was ruled out by imaging as well as neurological evaluation at that time, but his CPK was found to be excessively high with values over 10,000 and he was therefore transferred upstairs to the Medical Unit. At this time he has been medically cleared; however, our consult psychiatry team saw him over the several day span that he was on the Medical service and due to the high intentional and high lethality of his suicide attempt, which had been well researched and well planned, we did not feel safe discharging him directly from the Medical Unit. As I meet with the patient, he is now denying suicidal ideations. He states that the suicide attempt was in the setting of extreme stress over his academic situation. Now he is stating that he is already resolved, that he will take a medical leave of absence which will more or less reduce the burden of his current academic situation. 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 He transferred to [employer] in the Fall of 2015 to get a fresh start, but apparently he has been lax in turning in assignments and on August 05 he was counseled by his director of undergraduate admissions that he was falling behind and that he was being placed on academic probation. The patient states that he has historically had difficult relationships with people who are controlling and in an authority position and that he felt very belittled and ashamed of himself. At that time, he decided to take an overdose of several different medications. Apparently, he swallowed 4 pills of beta blockers, including Propranolol and Atenolol; somewhere between 12 and 15 pills of Nortriptyline 100 mg; 3 tablets of Benadryl 25 mg; and 7 to 12 tablets of Seroquel 150 mg XR. He explains that he had in fact researched these medications and in particular he felt that the Nortriptyline would be the lethal agent. He did fall asleep within half-an- hour of taking the pills, waking up on the floor the next morning and feeling weak and he dragged himself to bed and again slept for another 12 hours. On , he actually called his therapist, Carlos Greenberg, at the [facility] who strongly encouraged him to call 911. When there was no response when they called him back, they sent police and an ambulance to come and pick him up and take him here. At this point, the patient does state that he has been depressed since the age of [age] with recurrent depressive episodes, low mood, decreased interest, low level of energy, lack of motivation , impaired attention and concentration, passive wish, self-cutting behaviors to relieve stress, isolating from others, and feelings of guilt, hopelessness, helplessness, and worthlessness. He asserted that he is persistently depressed with brief periods lasting a few days where he does feel better. He denies manic or psychotic symptoms. He endorses anxiety in social settings or in situation of performance. He also described panic attacks, excessive worrying, feeling tense and irritable. He denies obsessive thoughts or compulsive rituals. He denies any history of trauma, abuse, or PTSD symptoms. The patient denies previous diagnosis of learning disorder or eating disorders. He has been diagnosed with ADHD in the past. PAST PSYCHIATRIC HISTORY: This is the patient's first inpatient psychiatric admission, notwithstanding his brief stay on our unit on August 09. He started outpatient care while he was attending school in [place] two arita ago for depression. Past medications include Desipramine, Nortriptyline, Viibryd, Alprazolam, Clonazepam, Bupropion XL, and Kayenta. He did have at least one episode of overdosing on Kayenta in the past, but states that this was a suicidal gesture without intent. This occurred approximately two years ago. Since being in [place], he has worked with Carlos Greenberg and Dr. Chema Lanier, his psychiatrist at the [facility]. I did speak with Dr. Lanier who feels that the patient is on too many medications. Dr. Lanier feels that the patient would benefit from optimizing his Venlafaxine while getting rid of his Seroquel, Bupropion, and Kayenta. FAMILY HISTORY: The patient reports a history of depression and anxiety in his biological mother. SUBSTANCE ABUSE HISTORY: The patient reports drinking socially. He estimates drinking from zero to two times per week, occasionally to the point of intoxication. He smokes marijuana occasionally. He denies smoking tobacco. He denies the use of other illicit drugs. SOCIAL HISTORY: The patient is the younger of two males from parents who were when he was about [id number]. He has a brother who is one year older and who lives in [place]. Following the separation, he spent time alternatively with both parents. 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 Subsequently he spent close to six years in [employer] where he eventually obtained a Master's degree and started working towards his PhD. Unfortunately, two of his advisors left leaving him without a committee for his dissertation and at that point he decided to transfer to [employer]. The patient identifies as being homosexual. He is not currently dating, but he has been sexually active with other males. He declines HIV testing, citing the lack of need. He reports feeling somewhat socially isolated on campus. REVIEW OF SYSTEMS: Currently the patient is experiencing some blood in his stools which is characteristic of his Crohn's disease. Other that this, he denies headache, double vision, sore throat, cough, chest pain, or difficulty breathing. He denies abdominal pain, nausea, vomiting or diarrhea. He denies difficulty ambulating, rashes, enlarged lymph nodes, fevers or changes in weight. PHYSICAL EXAMINATION VITAL SIGNS: Blood pressure 105/63, heart rate 95, temperature 98.2 degrees Fahrenheit, respiratory rate 16, oxygen saturations 98 percent on room air. HEENT: Head is normocephalic, atraumatic. NECK: Supple. CHEST: Clear to auscultation bilaterally. ABDOMEN: Soft and nontender. SKIN: Warm and dry. MUSCULOSKELETAL: Exam reveals no sign of edema. NEUROLOGIC: He is grossly intact. LABORATORY DATA: Complete metabolic panel reveals a most recent CPK as 1425 which is rapidly decreasing from the time of admission. Otherwise his complete metabolic panel is within normal limits. MENTAL STATUS EXAM: The patient is a young, somewhat effeminate white male who is wearing blue patient scrubs. He has dirty blonde hair which is clean and he has good grooming. Speech has a normal rate, tone and volume. He makes good eye contact. It is fairly easy to establish a rapport with him. Mood is dysthymic with a constricted affect. Thought process is linear and goal directed. Thought content is significant for his desire to leave the hospital and go on a medical leave. His plan for the future is to live with a friend of his in [place], [place] where he went to undergraduate school. He is denying suicidal or homicidal ideations. Currently, he denies auditory or visual hallucinations. Insight and judgment appear to be somewhat limited given the fact that he refused to sign back in to the Behavioral Health Unit voluntarily. He is also refusing to allow the hospital to contact his parents. Cognitively , he is awake and alert with what would appear to be a slightly above average intellect by virtue of his academic history. DIAGNOSES: AXIS I: Major depressive disorder, recurrent, severe without psychotic features ; unspecific anxiety disorder; attention deficit hyperactivity disorder, primary inattentive type by history. AXIS II: Deferred. AXIS III: Chronic Crohn's disease; rhabdomyolysis. AXIS IV: Severe, academic stressors. AXIS V: At the time of admission is 40. IMPRESSION: The patient is a 31-year-old, single, homosexual white male, student in [employer] at [employer] who arrived as a transferred from the Medical Unit following medical stabilization of a suicidal overdose on multiple pills in a formal attempt to end his own life. At this time, the patient states that his suicidal ideations are resolved, largely because his academic stressors have been decreased by the fact that he has decided on a medical leave of absence. Despite this, he is not having much social support in the area and he is refusing to allow us to contact his family because of what he considers would be an emotional burden to them were they to find out about his suicide attempt. It is clear that he has an inflammatory condition with his Crohn's disease which would be associated with major depression with inflammation. In these cases, patients tend to do better with medications that increase norepinephrine. For this reason, I will increase Effexor XR from 150 to 225 mg daily. I do not believe that he needs to receive all these different medications and so we will discontinue use of Kayenta, Seroquel and Wellbutrin. He is having trouble sleeping and so we will add a trial of Remeron 15 mg as an antidepressant adjunct that also has sleep benefits. I have ordered an MMPI to get further diagnostic clarification and I have already spoken with Dr. Chema Lanier and he is in agreement with the treatment plan. PLAN: The patient is admitted to the BSU where he is placed on q.15 minute checks for his own safety. We will resume Effexor at the elevated dose of 225 mg daily and discontinue his Kayenta, Bupropion and Seroquel. I will place him on Remeron 15 mg p.o. at bedtime for sleep as well as Adderall 15 mg in the morning for his ADHD. For his Crohn's disease, he takes Mesalamine 2400 mg twice daily and he is also on Hydrocortisone enema 100 mg in the evening. We are insisting that we have some type of collateral information from this family. Since he is uncomfortable with his mother being the source of this collateral, then we could certainly consider either his father or his brother, but we do need to have a better sense that he will have a safety plan for moving forward. While he is here, he is certainly encouraged to avail himself of all milieu activities, including individual and group psychotherapies. [id number]/[facility] #: [id number] RADHA
[2016-08-14] MEDS: Mirtazapine TAB* 15 MG PO SCH (21:25)
[2016-08-14] MEDS: HYDROCORTISONE ENEMA PR SCH (22:08)
[2016-08-15] MEDS ORDERED: Amphetamine MIXED SALT TAB* 10 MG TAB PO SCH (09:00)
[2016-08-15] MEDS: Venlafaxine EXT RELEASE CAP* 75 MG PO SCH (09:01)
--- NOTE | 2016-08-15 11:46 | PN ---
MHU: Group Therapy Note - Service Type Service Type: 93973 Group Psychotherapy - Cognitive Behavioral Group Therapy ( CBT):Patient was attentive and participatory in CBT programming this morning, and remained in good behavioral control. Patient expressed positive insights regarding relevant treatment interventions and goals.
[2016-08-15] MEDS ORDERED: traZODone TAB* 100 MG PO PRN (15:07)
--- NOTE | 2016-08-15 15:17 | PN ---
Subjective - Subjective Service Type: 81525 Hosp care 15 min low complexity Subjective: The patient reports that he was not able to sleep well last night without quetiapine, despite the introductions of scheduled mirtazapine and prn trazodone. He is reluctant still to allow us to call his family, not wanting to cause them anxiety or stress, however, he does sign an MIKE for his brother Moi in [place]. The patient feels OK so far with the med changes that we' ve made so far this hospitalization. He does request a booster dose of Adderall at noon for concentration improvement. He continues to deny SI. Objective - Appearance Appearance: Well Developed/Nourished Dysmorphic Features: No Hygiene: Normal Grooming: Well Kept - Behavior Psychomotor Activities: Normal Exhibits Abnormal Movement: No - Attitude and Relatedness Attitude and Relatedness: Cooperative Eye Contact: Good - Speech Quality: Unpressured Latencies: Normal Quantity: Appropriate - Mood Patient's Decription of Mood: "Okay" - Affect Observed Affect: Constricted Affect Consistent with: Dysphoria - Thought Process Patient's Thought Process: Coherent Thought Content: No Passive Wish, No Suicidal Planning, No Homicidal Ideation, No Paranoid Ideation - Sensorium Experiencing Hallucinations: No, Sensorium is Clear Type of Hallucinations: Visual: No, Auditory: No, Command: No - Level of Consciousness Level of Consciousness: Alert Orientation: Yes Intact, Yes Orientated to Time, Yes Orientated to Place, Yes Orientated to Person - Impulse Control Impulse Control: Tenuous - Insight and Judgement Insight and Judgement: Fair - Group Participation Particating in Group Activities: Yes - Medication Management Medication Management Adherence: Yes Assessment - Assessment Merits Inpatient Hospitalization: For Immediate Safety, For Stabilization Inpatient DSM-IV Dx: MDD, recurrent, severe without psychotic features Clinical Impression: 31 y.o. single, homosexual, white male with a hx of recurrent MDD and chronic inflammatory bowel disease who was admitted following a suicidal overdose on multiple medications that had both high intentionality and high lethality. Plan - Plan Treatment Plan: Name: LEONA MCMILLAN Birthdate: 1985 [id number] The patient is now on venlafaxine XR at the higher dose of 225mg daily. This is augmented with mirtazapine 15mg PO qhs, Adderall and prn trazodone. We will increase the prn trazodone dose to 200mg for improved sleep and increase the Adderall to 15mg twice daily at morning and noon. Will contact his brother for further collateral and d/c safety planning. Continued Medication Management: Different Medication Medications: Current Medications Acetaminophen (Tylenol Tab*) 650 mg PO Q4H PRN PRN Reason: for pain; or Temp >101 F Al Hydrox/Mg Hydrox/Simethicone (Maalox Plus*) 30 ml PO Q4H PRN PRN Reason: INDIGESTION Amphetamine/Dextroamphetamine (Adderall Tab*) 15 mg PO DAILY CAYLA Amphetamine/Dextroamphetamine (Adderall Tab*) 15 mg PO QAM CAYLA Hydrocortisone (Cortenema*) 100 mg [place] BEDTIME CAYLA Last Admin: 08/14/16 22:08 Dose: 100 mg Mesalamine (Mesalamine Dr Cap*) 2,400 mg PO BID [facility] Last Admin: 08/15/16 09:02 Dose: 2,400 mg Mirtazapine (Remeron Tab*) 15 mg PO BEDTIME [facility] Last Admin: 08/14/16 21:25 Dose: 15 mg Trazodone HCl (Desyrel Tab*) 200 mg PO BEDTIME PRN PRN Reason: INSOMNIA Venlafaxine HCl (Effexor Xr Cap*) 225 mg PO DAILY [facility] Last Admin: 08/15/16 09:01 Dose: 225 mg - Discharge Plan Discharge Plan: Inpatient Hospitalization
--- NOTE | 2016-08-15 15:22 | CONS ---
PSYCHOLOGICAL CONSULT REPORT: DATE OF CONSULT: 08/15/16 REASON FOR REFERRAL: Wilmer was referred for personality testing secondary to concerns regarding higher levels of lethality included in his suicide attempts. Other concerns revolve around possible characterological vulnerabilities as he has a history of engaging in self-injury. 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 He is originally from [place], but has spent the past 6 years in [place], [place], where he was attending college, working on Master's degree in music. He described being on medical floor for approximately 5 days before being transferred down to the psychiatric unit for continuing evaluation. Wilmer had fairly extreme overdose attempt, which he apparently researched having taking several different medications, and believing that his ingestion of nortriptyline, especially would prove to be lethal. He did not self-preserve until he had slept apparently for another day where he began to evident some symptoms that needed to have a possible stroke ruled out. Presently, Wilmer presents with fair affect and he is euthymic. He was spontaneous in speech and cooperative with efforts to interview and assess. He attended a group psychotherapy meeting led by this public relations writer and was engaged and productive in conversation. He presents with variable affect and has regained a sense of future orientation. He describes intentions of taking a medical leave of absence from [employer], which he feels will alleviate his sense of duress. He describes negatively reacting to being told he was on academic probation. Despite of his struggles academically, Wilmer reports good social adjustment to his move to [place] where he is now in his second semester. He anticipates being in the program for 5 to 6 years. TEST RESULTS: Wilmer provides fairly distressed profile on this administration of MMPI-2 testing. He elevates the FB scale (T = 80), which appears to drive his endorsement of clinical symptoms significantly. He elevates the neurotic triad (T = 80) as well as the psychasthenia scale (T = 85). He has lesser elevations on all the other clinical indices with the exception of the hypomania scale, which is quite low (T = 35). His profile is suggestive of a major depressive episode characterized by high endorsement of physical difficulties. Persons experiencing physical duress in the context of depression are often characterized as utilizing repression as a primary emotional defence and who have difficulty with expressing thoughts and feelings at timely fashion. Wilmer's struggles with Crohn's disease may also exacerbate such symptoms significantly. Feedback with Wilmer addressed concerns regarding depression and the importance of being more expressive and utilizing help in a more active fashion. Wilmer describes significant historical struggles with depression as well as poor self- esteem and feeling estranged from other people. He describes discussion addressing his elevated psychoticism scale in a context of chronically feeling apart from others and somewhat alienated. Wilmer presently denies continuing thoughts of suicide and is expressing hopes of being discharged in order to return to his situation at [employer], where he is anticipating a medical leave. He also describes efforts to being enrolled as a disabled student, so he may have certain accommodations when his symptoms become difficult to manage. He describes having to miss classes at times and having difficulties in completing his work in a timely way secondary to physical duress. Wilmer is considering whether he will be able to stay in [place] during the medical leave or return to his [place], [place]. DIAGNOSTIC IMPRESSION: [place] I: Major depressive disorder, recurrent, severe without psychotic features. Attention deficit and hyperactivity disorder, primarily inattentive type by history. [place] II: Rule out borderline personality features. [place] III: Chronic Crohn's disease. [id number]/[facility] #: [id number] [facility]
[2016-08-15] MEDS: Mirtazapine TAB* 15 MG PO SCH (21:21)
[2016-08-15] MEDS: HYDROCORTISONE ENEMA PR SCH (21:26)
[2016-08-16] MEDS: Venlafaxine EXT RELEASE CAP* 75 MG PO SCH (08:38)
[2016-08-16] MEDS: Amphetamine MIXED SALT TAB* 10 MG TAB PO SCH ×2 (09:52→12:41)
[2016-08-16] MEDS ORDERED: traZODone TAB* 100 MG PO PRN (16:21)
--- NOTE | 2016-08-16 16:59 | PN ---
Subjective - Subjective Service Type: 96137 Hosp care 15 min low complexity Subjective: Max reports of severe headache,dry mouth, throat and nasal passage and thinks that id due to recent change in meds. Slept poorly last night. Says mood is OK. No report or evidence of thoughts or perceptual disturbances. Denies suicidal or homicidal ideation. Objective - Appearance Appearance: Healthy Appearing Dysmorphic Features: No Hygiene: Normal Grooming: Disheveled - Behavior Psychomotor Activities: Normal Exhibits Abnormal Movement: No - Attitude and Relatedness Attitude and Relatedness: Appropriate Eye Contact: Good - Speech Quality: Unpressured Latencies: Normal Quantity: Appropriate - Mood Patient's Decription of Mood: "Okay" - Affect Observed Affect: Depressed Affect Consistent with: Dysphoria - Thought Process Patient's Thought Process: Coherent, Goal Directed Thought Content: No Passive Wish, No Suicidal Planning, No Homicidal Ideation, No Paranoid Ideation - Sensorium Experiencing Hallucinations: No, Sensorium is Clear Type of Hallucinations: Visual: No, Auditory: No, Command: No - Level of Consciousness Level of Consciousness: Alert Orientation: Yes Intact, Yes Orientated to Time, Yes Orientated to Place, Yes Orientated to Person - Impulse Control Impulse Control: Intact - Insight and Judgement Insight and Judgement: Fair - Group Participation Particating in Group Activities: Yes - Medication Management Medication Management Adherence: Yes Assessment - Assessment Merits Inpatient Hospitalization: For Stabilization, For Discharge Planning Inpatient DSM-IV Dx: MDD, recurrent, severe without psychotic features Clinical Impression: 31 y/o male with depression and recent serious suicide attempt continues to verbalize somatic symptoms and asking for more meds. Plan - Plan Treatment Plan: Name: LEONA MCMILLAN Birthdate: 1985 [id number] Continued Medication Management: Continue Outpt Medication Medications: Current Medications Acetaminophen (Tylenol Tab*) 650 mg PO Q4H PRN PRN Reason: for pain; or Temp >101 F Last Admin: 08/15/16 16:52 Dose: 650 mg Al Hydrox/Mg Hydrox/Simethicone (Maalox Plus*) 30 ml PO Q4H PRN PRN Reason: INDIGESTION Amphetamine/Dextroamphetamine (Adderall Tab*) 10 mg PO 1200 CAYLA Last Admin: 08/16/16 12:41 Dose: 10 mg Amphetamine/Dextroamphetamine (Adderall Tab*) 15 mg PO QAM [facility] Last Admin: 08/16/16 09:52 Dose: 15 mg Hydrocortisone (Cortenema*) 100 mg [place] BEDTIME CAYLA Last Admin: 08/15/16 21:26 Dose: 100 mg Mesalamine (Mesalamine Dr Cap*) 2,400 mg PO BID [facility] Last Admin: 08/16/16 08:39 Dose: 2,400 mg Mirtazapine (Remeron Tab*) 15 mg PO BEDTIME [facility] Last Admin: 08/15/16 21:21 Dose: 15 mg Trazodone HCl (Desyrel Tab*) 300 mg PO BEDTIME PRN PRN Reason: INSOMNIA Venlafaxine HCl (Effexor Xr Cap*) 225 mg PO DAILY [facility] Last Admin: 08/16/16 08:38 Dose: 225 mg - Discharge Plan Discharge Plan: Outpatient Follow Up Outpatient Program: [facility]
[2016-08-16] MEDS: Mirtazapine TAB* 15 MG PO SCH (21:51)
[2016-08-16] MEDS: HYDROCORTISONE ENEMA PR SCH (21:55)
[2016-08-17] MEDS: Venlafaxine EXT RELEASE CAP* 75 MG PO SCH (09:30)
[2016-08-17] MEDS: Amphetamine MIXED SALT TAB* 10 MG TAB PO SCH ×2 (09:32→12:45)
[2016-08-17] MEDS: Mirtazapine TAB* 15 MG PO SCH (20:54)
[2016-08-17] MEDS: HYDROCORTISONE ENEMA PR SCH (20:56)
[2016-08-18 08:05] VITALS: BP 115/93
[2016-08-18] MEDS: Venlafaxine EXT RELEASE CAP* 75 MG PO SCH (09:56)
[2016-08-18] MEDS: Amphetamine MIXED SALT TAB* 10 MG TAB PO SCH ×2 (09:59→11:59)
--- NOTE | 2016-08-19 05:05 | DS ---
DISCHARGE SUMMARY: DATE OF ADMISSION: 08/13/16 DATE OF DISCHARGE: 08/18/16 DISCHARGE DIAGNOSIS: [place] I: Major depressive disorder, recurrent, severe without psychotic features. Unspecified anxiety disorder. Attention deficit hyperactivity disorder, primary inattentive type by history. [place] II: Deferred. [place] III: Chronic Crohn disease, rhabdomyolysis. [place] IV: Severe, academic stressors. [place] V: At the time of admission is 40. At the time of discharge is 60. CONDITION ON DISCHARGE: Stable. The patient is steadfastly denying any further thoughts of suicidal ideations; one of the most pressing problems in the acute setting that propelled his suicidal ideations was being placed on academic probation during the course of this hospital; however, the patient has been visited on the unit by his travel money advisor and it appears that he will be granted academic accommodations due to his mental illness. This will likely take him off of probation and greatly reduce his psychosocial stressors. In addition, we have had contact with his family and they are very much supportive and in agreement with the discharge plan. The patient has a close followup at the [facility] in the community and he is future oriented indicating that he is looking forward to spending time with his family in [place] as well as college friends in [place] until resuming his studies in the fall of 2016. MINI MENTAL STATUS AT THE TIME OF DISCHARGE: The patient is a young white male wearing blue patient scrubs. He is clean, well groomed with dirty blonde hair. Speech has a normal rate, tone, and volume. He makes good eye contact. Was fairly easy to establish a rapport with him. Mood is euthymic with a full affect. Thought process is linear and goal directed. Thought content is significant for his desire to leave the hospital and take a medical leave of absence from school. His plans for the future is to leave with a friend of his in [place], [place], where he went to undergraduate school. He is steadfastly denying suicidal ideations and denying homicidality as well. Currently, he denies auditory or visual hallucinations while insight and judgment appear to be fair given his willingness to follow up with outpatient treatment. Cognitively, he is awake and alert with what would appear to be a slightly above average intellect by virtue of his academic history. DISCHARGE INSTRUCTIONS: As follows: A: Medications. The patient is takin. Effexor XR 225 mg p.o. q.a.m. 2. He is taking Remeron 15 mg p.o. q.h.s. 3. He is taking Adderall immediate release 15 mg once in the morning and once at noon. 4. In addition, he is taking mesalamine 2400 mg twice daily and hydrocortisone enema 100 mg in the evening. B. Diet: Regular. C. Activity. As tolerated. The patient is a nonsmoker. D: Followup care: The patient will follow up with the [facility] within 3 days of discharge. There, he sees a therapist named, Carlos Greenberg, as well as psychiatrist, Dr. Chema Lanier. 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 The patient had been briefly hospitalized on our unit on Thursday , 08/09/16; however, almost immediately upon admission, he started complaining of tingling and numbness in his face. A stroke was ruled out by imaging as well as neurological evaluation at that time, but his CPK was found to be excessively high with values over 10,000 and he was therefore transferred upstairs to the medical unit. At the time of transfer back to our unit, he had been medically cleared. However, our consult psychiatry team saw him upstairs on the [address] [place] [address] unit and they felt that due to the high intentionality and high lethality of his suicide attempt, which had been well researched and well planned, we did not feel safe discharging him back home. At the time, I met with the patient during his re-admission, he was already denying suicidal ideations. He stated that his suicide attempt was in the setting of extreme stress over his academic situation. Now, he is stating that this is already resolved and that he will take a medical leave of absence which will more reduce the burden of his current academic situation. My understanding is that the patient had similar academic problems in the music department at the [employer] where his masters degree is from. He transferred to [place] in the fall of 2015 to get a fresh start but apparently he has been lax in turning in assignment and on August 05, he was counseled by his artistic director that he is falling behind and that he was being placed on academic probation. The patient states that he has historically had difficult relationships with people who are controlling and in authority position and that he felt very belittled and ashamed of himself after that meeting. At the time, he decided to take an overdose of several different medications. Apparently, he swallowed four pills of beta-blockers including propranolol and atenolol, somewhere between 12 and 15 pills of nortriptyline, three tablets of Benadryl 25 mg and 7 to 12 tablets of Seroquel 150 mg XR. He explains that he had in fact researched these medications and in particular he felt that the nortriptyline would be the lethal agent. Apparently, he feel asleep within half an hour of taking the pills waking up on the floor the next morning and feeling weak. He dragged himself to bed and again slept for another 12 hours. On , he actually called his therapist, Carlos Greenberg at the [facility] who strongly encouraged him to come to hospital. When there was no response during a call back to the patient, they activated the [facility] system and had him picked up in an ambulance and brought him to the hospital. At the point of readmission, the patient does state that he has been depressed since the age of 12 or 13 with what appeared to be recurrent depressive episodes of low mood, decreased interest, low level of energy, lack of motivation, impaired attention, poor concentration, passive wish, self cutting behaviors to relieve stress, isolating from others and feelings of guilt, hopelessness, helplessness, and worthlessness. He asserted at the time of admission that he has been persistently depressed with only brief periods lasting for the few days where he actually feels better. He denies manic or psychotic symptoms. He endorsed anxiety in social settings or in situations of performance. He also described panic attacks, excessive worrying, feeling tense, and irritable. He denied obsessive thoughts or compulsive rituals. Part B: Psychiatric treatment rendered: The patient was readmitted to the adult behavioral health unit where he was placed on q.30-minutes checks for his own safety. I was able to contact Dr. Chema Lanier, the patient's outpatient provider at [facility]. Dr. Lanier informed me that he has been trying to get the patient off of lithium and Seroquel out of concerns about his polypharmacy prior to this suicidal overdose occurring, Dr. Lanier's intention was to optimize the patient's venlafaxine therapy and see if he can wean him off of other medications. The patient was agreeable with this plan and we went forward by discontinuing Wellbutrin as well as Seroquel XL and lithium while his venlafaxine XR was increased from 150 to 225 mg daily. The patient was educated that depressed patients with inflammatory illness such as himself often do better on serotonin and norepinephrine reuptake inhibitors, also pranav as SNRIs. He was agreeable with this plan and because of difficulty sleeping, we did add low dose Remeron 15 mg p.o. q.h.s. For breakthrough insomnia, we utilized p.r.n. trazodone which he complained gave him a dry mouth. One of the sticking points early in his course was that he was reluctant to give us the information necessary to contact his family, but he ultimately he did agree that it was necessary for them to be involved. His brother, Moi, who resides in [place], was contacted and indicated that he would be providing further social support to the patient. Apparently, the patient's brother contacted their mother and she was involved apparently in discharge planning at the end of the patient's hospital course as well. Ultimately, it was decided that the patient would pursue a medical leave from his school and it was notable that he was visited by his travel money advisor here on the unit and that the advisor agreed to give him additional testing accommodations due to his mental health issues and that this would effectively likely remove him from academic probation. The patient was highly motivated to get well during his hospitalization. He participated fully in all groups. He maintained his grooming sufficiently and was cooperative throughout all interactions that this observer had with him. At this time, he contracts for safety and does not feel that any further inpatient hospitalization would benefit him. He is future oriented, looking to wrap things up in terms of his academic situation and initiating his medical withdrawal and then spending some time with a friend that he went to college with in [place]. Family is comfortable with the discharge plan and his followups will be within the next 2 to 3 days at [facility] [id number]/[facility] #: [id number] RADHA
== END 2016-08-18 15:30 | disposition home or self-care (01) | DRG 885 ==
LOC: BSU 15:15
PROVIDERS: ADMIT Psychiatry & Neurology Psychiatry; ATTEND Psychiatry & Neurology Psychiatry
DX: F33.2 Major depressive disorder, recurrent severe without psychotic features (principal); M62.82 Rhabdomyolysis; K50.90 Crohn's disease, unspecified, without complications; F90.0 Attention-deficit hyperactivity disorder, predominantly inattentive type; F41.9 Anxiety disorder, unspecified; Z81.8 Family history of other mental and behavioral disorders
CPT/HCPCS: 90853; 99222; 99231; 99238; A9270-GY